=== PATIENT | male | born 1980 | race Hispanic/Latino ===

== ENCOUNTER 2019-06-21 15:40 | Emergency (ER) | payer OTHER ==
[~2019-06-21] VITALS: Ht 175.3 cm; Wt 100.0 kg
[2019-06-21 15:48] VITALS: BP 169/109
[2019-06-21] MEDS ORDERED: TORADOL IM STA (16:06)
--- NOTE | 2019-06-21 16:06 | ER.PDOC ---
General Chief Complaint: Extremities Stated Complaint: LEFT ANKLE INJURY Time seen by MD: 15:50 Source: patient Exam Limitations: no limitations History of Present Illness Initial Comments Pt was hit in left ankle with a hose while at work today around 1430. Unable to bear weight rates pain at 8 out of 10. Onset: this afternoon Where: work Severity: moderate Context: crush, wearing shoes Associated Symptoms: numbness distally, swelling Modifying Factors: pain on movement Allergies: Coded Allergies: No Known Allergies (Unverified , 06/21/19) Review of Systems Constitutional: no symptoms reported EENTM: no symptoms reported Respiratory: no symptoms reported Cardiovascular: no symptoms reported Gastrointestinal: no symptoms reported Musculoskeletal: joint swelling (left ankle) Skin: no symptoms reported Psychiatric/Neurological: no symptoms reported Physical Exam General Appearance: Mild Distress Foot: tenderness, swelling, ecchymosis Ankle: swelling, ecchymosis, limited ROM by pain Gait: limited by pain Neuro: motor nml Vascular: no vascular compromise Tendons: injury seen Leg/Knee/Thigh: uninjured above ankle Skin: warm/dry Head/ENT: nml inspection, pharynx nml Neck/Back: nml inspection, non-tender Resp/CVS: no resp distress, lungs clear, heart sounds nml, reg. rate & rhythm Abdomen: non-tender, no organomegaly Results/Orders Results/Orders Orders - [employer] Xr Ankle 3v Lt (06/21/19 15:56) Ketorolac Tromethamine (Toradol) (06/21/19 16:06) Drug Scrn Med W Confirmation (06/21/19 16:25) Vital Signs Date Time Temp Pulse Resp B/P (MAP) Pulse Ox O2 Delivery O2 Flow Rate FiO2 06/21/19 16:08 98.1 100 16 169/109 (129) 95 06/21/19 16:08 98.1 100 16 06/21/19 16:08 98.1 100 16 169/109 (129) 95 06/21/19 15:48 98.1 100 16 95 Administered Medications Medications (Trade) Dose Ordered Sig/Cassidy Route PRN Reason Start Time Stop Time Status Last Admin Dose Admin Ketorolac Tromethamine (Toradol) 60 mg OT STAT IM 06/21/19 16:06 06/21/19 16:08 DC 06/21/19 16:27 60 MG Course Vitals & review Data Vital Sign - Last 24 Hours 06/21/19 06/21/19 06/21/19 06/21/19 15:48 16:08 16:08 16:08 Temp 98.1 98.1 98.1 98.1 Pulse 100 100 100 100 Resp 16 16 16 16 B/P (MAP) 169/109 (129) 169/109 (129) Pulse Ox 95 95 95 O2 Sat by Pulse Oximetry: 95 Departure Time of Disposition: 16:44 Disposition: 01 HOME, SELF-CARE Impression: Primary Impression: Injury of ankle, left Condition: Stable Referrals: BRITTANY PITTMAN MD (PCP) PRIMARY CARE PROVIDER Additional Instructions: Rest left ankle ice, elevate and compression Continue to alternate Tylenol and Motrin for fever and pain Follow up with your Primary Care Provider in the next 1-2 days If symptoms become worse return to the ER Duration or Time Spent with Pa: 20 min LITO TOBIAS NP Jun 21, 2019 16:06
[2019-06-21 16:08] VITALS: BP 169/109
--- NOTE | 2019-06-21 16:23 | DIREP ---
PROCEDURE:XRAY ANKLE MIN 3VWS-LT COMPARISON:None. INDICATIONS:left ankle injury FINDINGS:AP, lateral, and oblique view. BONES:No fracture. JOINTS:No dislocation. Small anterior tibiotalar joint effusion.. SOFT TISSUES:Show moderate ankle soft tissue swelling. OTHER:No additional findings. CONCLUSION: No fracture. Moderate ankle soft tissue swelling. Small anterior tibiotalar joint effusion. No dislocation. Dictated by: Tato Escobar MD on 06/21/2019 at 04:21 PM
[2019-06-21 16:44] VITALS: BP 160/100
== END 2019-06-21 16:47 | disposition home or self-care (01) ==
LOC: ER 15:40
DX: S99.912A Unspecified injury of left ankle, initial encounter (principal); Z79.1 Long term (current) use of non-steroidal anti-inflammatories (NSAID); X58.XXXA Exposure to other specified factors, initial encounter; Y93.89 Activity, other specified; Y92.89 Other specified places as the place of occurrence of the external cause; Y99.0 Civilian activity done for income or pay
CPT/HCPCS: 73610; 80307; 96372; 99285; J1885